=== PATIENT | female | born 1995 | race Asian ===

== ENCOUNTER 2024-11-24 00:23 | Emergency (ER) | payer OTHER ==
[~2024-11-24] VITALS: Ht 157.5 cm; Wt 70.0 kg
[2024-11-24 00:24] VITALS: TEMP 98.2
[2024-11-24 01:56] VITALS: BP 126/65; PULSE 71; RESP 16; O2SAT 98
[2024-11-24] MEDS ORDERED: MAG30ORA11 PO (02:25)
[2024-11-24] MEDS ORDERED: DICY-1 PO (02:25)
== END 2024-11-24 02:40 | disposition home or self-care (01) ==
LOC: EMS 00:25
DX: T50.902A Poisoning by unspecified drugs, medicaments and biological substances, intentional self-harm, initial encounter (principal); R10.9 Unspecified abdominal pain; Z98.890 Other specified postprocedural states; Y92.89 Other specified places as the place of occurrence of the external cause
CPT/HCPCS: 99283; Z7502